=== PATIENT | female | born 1975 | race Caucasian/White ===

== ENCOUNTER 2018-01-26 06:53 | Emergency (ER) | payer OTHER ==
[~2018-01-26] VITALS: Ht 162.6 cm; Wt 67.1 kg
[~2018-01-26 06:53] MED LIST: LOSARTAN-HCTZ1 EAC1; NIFE60TA3
== END 2018-01-26 08:49 | disposition home or self-care (01) ==
LOC: ER 06:53
DX: R06.02 Shortness of breath (principal); F06.4 Anxiety disorder due to known physiological condition

== ENCOUNTER 2019-04-20 14:34 | Inpatient (IN) | payer OTHER ==
[~2019-04-20] VITALS: Ht 162.6 cm; Wt 68.0 kg
[2019-04-23] MEDS ORDERED: TOPROL XL25 M1 PO (13:46)
[2019-04-23] MEDS ORDERED: LOSARTAN-HCTZ1 EACH PO (13:46)
[2019-04-23] MEDS ORDERED: NIFEDIPINE ER60 MG PO (13:47)
[2019-04-24] MEDS ORDERED: HYDROCHLOROTHIA25 MG PO (10:28)
[2019-04-24] MEDS ORDERED: COZAAR100 MG PO (10:28)
[2019-04-24] MEDS ORDERED: PROCARDIA XL90 MG PO (10:28)
== END 2019-04-23 14:07 | disposition home or self-care (01) | DRG 305 ==
LOC: ER 14:34 → MEDJ 04-21 11:06
PROVIDERS: ADMIT Internal Medicine
PROC: BT43ZZZ Ultrasonography of Bilateral Kidneys (ICD-10-PCS; principal; 2019-04-21)
PROC: B246ZZZ Ultrasonography of Right and Left Heart (ICD-10-PCS; 2019-04-21)
PROC: B43 Imaging, Lower Arteries, Magnetic Resonance Imaging (MRI) (ICD-10-PCS; 2019-04-21)
PROC: B43 Imaging, Lower Arteries, Magnetic Resonance Imaging (MRI) (ICD-10-PCS; 2019-04-21)
DX: I16.0 Hypertensive urgency (principal); I10 Essential (primary) hypertension; F41.8 Other specified anxiety disorders
CPT/HCPCS: 74181; 74185